=== PATIENT | male | born 1935 | race Caucasian/White ===

== ENCOUNTER → 2021-01-19 10:02 | Outpatient (CLI) | payer MEDICARE, OTHER, SELFPAY ==
[2021-01-19 09:30] VITALS: BMI 27.2
--- NOTE | 2021-01-19 10:15 | RAD_ITS ---
INDICATION: abnormal lung sounds EXAMINATION/TECHNIQUE: X-RAY - XR Chest 2 Views COMPARISON: 07/03/2015. FINDINGS: Chronic lung changes. Hyperinflated lungs. Flattening of the hemidiaphragms. Tortuous and calcified thoracic aorta. The heart is not enlarged. No pleural effusion or pneumothorax. Left basilar atelectasis. No acute osseous abnormalities. Degenerative changes of the thoracic spine. RAD/Chest PA and Lateral IMPRESSION: No acute radiographic abnormalities. COPD. Electronically Signed: Deonte Leon MD at 17:27 EDT Tel , Service support ,
== END ==
PROVIDERS: PCP Family Medicine; Referring Provider Physician Assistant Medical; Visit Provider Physician Assistant Medical
DX: R09.89 Other specified symptoms and signs involving the circulatory and respiratory systems (principal)
CPT/HCPCS: 71046